=== PATIENT | male | born 1960 | race Caucasian/White ===

== ENCOUNTER 2019-11-28 22:09 | Emergency (ER) | payer BC, SELFPAY ==
[2019-11-28 22:09] VITALS: BP 182/97; PULSE 84; RESP 17; TEMP 37.2; O2SAT 98; BMI 31.2
--- NOTE | 2019-11-28 22:16 | PC.NURSE ---
called [facility] for pt records from last night. requested radiology, lab and discharge reports.
--- NOTE | 2019-11-28 22:31 | CT_ITS ---
PROCEDURE: CT ABDOMEN PELVIS W CON CLINICAL INDICATION: LLQ pain Left lower quadrant pain COMPARISON: No exams were available for comparison TECHNIQUE: IV Contrast: 75ML OPTIRAY 350 Oral Contrast None Axial images obtained with sagittal and coronal reformats. All CT scans at the facility use one or more dose reduction, viz: automated exposure control, ma/kV adjustment per patient size (including targeted exams where dose is matched to indication, i.e. head), or iterative reconstruction technique. FINDINGS: LOWER THORAX: No acute finding ABDOMEN & PELVIS: There is a small hiatal hernia with mild nonspecific thickening of the distal esophagus. The liver, gallbladder, spleen, left adrenal gland, pancreas, has an unremarkable appearance. The right adrenal gland is enlarged at 3.6 cm with an average density of 29 Hounsfield units. There are bilateral renal cyst. There is minimal ectasia of the left renal collecting system secondary to a 2 mm stone at the left ureterovesical junction. There is some minimal stranding of the perinephric and periureteral fat on the left. 2 mm stone in the lower pole of the right kidney. There are bilateral renal hypodensities consistent with renal cysts which may be confirmed with ultrasound. No evidence of appendicitis. Hyperdensity is noted in the appendix which could be related to recent contrast. There is diverticulosis of the descending and sigmoid colon. No evidence of diverticulitis. There is mild thickening of the sigmoid colon which could be due to nondistention or mild colitis. Small nodes are present in the retroperitoneum. No acute bony findings. IMPRESSION: 1. 2 mm left ureterovesical junction stone with mild left-sided obstructive uropathy. Nonobstructive right nephrolithiasis. 2. Indeterminate right adrenal mass. Recommend follow-up CT or MRI with adrenal protocol without and with enhancement 3. Colonic diverticulosis. There is thickening of the sigmoid colon which could be due to nondistention or colitis. No evidence of diverticulitis. Dictated b Paulo Magallanes MD 11/29/2019 08:56 Paulo Magallanes MD in [place] 11/29/2019 08:56
[2019-11-28 22:41] LABS: Basophils % 0.3 % (0.1-2.0); Eosinophils # 0.2 K/mm3 (0.0-0.4); Eosinophils % 2.5 % (0.1-12.0); Hematocrit 45.8 % (42.0-52.0); Hemoglobin 16.2 g/dL (14.1-18.0); Lymphocytes # 2.9 K/mm3 (0.7-4.5); Lymphocytes % 32.1 % (10-50); Mean Corpuscular HGB Conc 35.5 g/dL (31.8-35.4); Mean Corpuscular Hemoglobin 32.6 pg (27.0-31.2); Mean Corpuscular Volume 91.8 fl (80-94); Mean Platelet Volume 9.1 fl (7.4-10.4); Monocytes # 0.5 K/mm3 (0.1-1.0); Monocytes % 5.8 % (1.7-9.3); Neutrophils # 5.3 K/mm3 (1.8-7.8); Neutrophils % 59.3 % (37.0-80.0); Platelet Count 163 K/mm3 (142-424); Red Blood Count 4.98 M/mm3 (4.60-6.20); Red Cell Distribution Width 13.1 % (11.5-17.5)
[2019-11-28 22:43] LABS: Alanine Aminotransferase 16 U/L (12-78); Albumin Level 4.6 g/dl (3.5-5.0); Albumin/Globulin Ratio 1.4 (1.1-1.8); Alkaline Phosphatase 121 U/L (38-126); Anion Gap 13.1 mEq/L (5-15); Aspartate Amino Transferase 32 U/L (17-59); Bilirubin,Total 0.5 mg/dl (0.2-1.3); Blood Urea Nitrogen 21 mg/dl (9-20); Calcium 9.9 mg/dl (8.4-10.2); Carbon Dioxide 30 mmol/L (22.0-30.0); Chloride 101 mmol/L (98-107); Creatinine Clearance Estimated 78 mL/min (50-200); Estimated Glomerular Filt Rate 52 ml/min (>60); GFR (African American) 63 ML/MIN (>60); Globulin 3.3 g/dL (1.3-3.2); Glucose 160 mg/dl (74-100); Potassium 4.1 mmoL/L (3.5-5.1); Sodium 140 mmol/L (136-145); Total Protein,Serum 7.9 g/dl (6.3-8.2)
[2019-11-28 22:44] LABS: Lactic Acid 1.3 mmol/L (0.7-2.1)
[2019-11-28 22:49] LABS: C-Reactive Protein 1.6 mg/L (0-4)
[2019-11-28 23:05] LABS: Erythrocyte Sedimentation Rate 7 mm/hr (0-20)
[2019-11-28 23:30] VITALS: BP 151/94; PULSE 97; RESP 18; O2SAT 97
--- NOTE | 2019-11-28 23:31 | [facility].EDNVD ---
ED Disposition Clinical Impression: Renal colic on left side, Renal insufficiency, mild Disposition: Home, Self-Care Condition on Discharge: Good Instructions: DI for Kidney Stones Additional Instructions: fluids and call dr sotelo saturday am and use meds Prescriptions: Tamsulosin HCl [Flomax 0.4mg capsule] 0.4 mg PO HS #10 cap Prescription Printed Hydrocod/Acet 5/325 mg [Frazer 5/325mg tablet] 1 tab PO Q6HP PRN #7 tab PRN Reason: Moderate To Severe Pain Prescription Printed Referrals: Raghavendra Montaño [Primary Care Provider] - Fuentes Sotelo MD [Staff Physician] - - Critical Care Critical Care Time: No Attestation: On 11/28/19, the high probability of a clinically significant, sudden or life threatening deterioration of the following system(s) required my full and direct attention, intervention and personal management. The time I documented below is in addition to time spent performing reported procedures but includes the following listed in this critical care notation. Medical Decision Making - Medical Records Medical records reviewed: Yes: I reviewed the patient's medical records. - Sebastián Inquiry Pt receiving controlled substance: No Vital Signs: 11/28/19 22:09 Temperature 99.0 F Temperature Source Oral Pulse Rate [Left Radial] 84 Respiratory Rate 17 Blood Pressure [Right Arm] 182/97 H Blood Pressure Mean [Right Arm] 125 Blood Pressure Source [Right Arm] Automatic Cuff Blood Pressure Position [Right Arm] Sitting 02 Sat by Pulse Oximetry 98 Oxygen Delivery Method Room Air - Lab Data Lab results reviewed: Yes: I reviewed the patient's lab results. Lab Results 11/28/19 22:15: WBC 9.0, RBC 4.98, Hgb 16.2, Hct 45.8, MCV 91.8, MCH 32.6 H, MCHC 35.5 H, RDW 13.1, Plt Count 163, MPV 9.1, Neut % (Auto) 59.3, Lymph % (Auto) 32.1, [place] % (Auto) 5.8, Eos % (Auto) 2.5, Baso % (Auto) 0.3, Neut # (Auto) 5.3, Lymph # (Auto) 2.9, [place] # (Auto) 0.5, Eos # (Auto) 0.2, Baso # (Auto) 0.0, ESR 7 11/28/19 22:15: Sodium 140, Potassium 4.1, Chloride 101, Carbon Dioxide 30, Anion Gap 13.1, BUN 21 H, Creatinine 1.40 H, Estimated Creat Clear 78, Estimated GFR 52 L, Est GFR ( Amer) 63, Glucose 160 H, Calcium 9.9, Total Bilirubin 0.5, AST 32, ALT 16, Alkaline Phosphatase 121, C-Reactive Protein 1.6, Total Protein 7.9, Albumin 4.6, Globulin 3.3 H, Albumin/Globulin Ratio 1.4 11/28/19 22:15: Lactate 1.3 Result diagrams: 11/28/19 22:15 11/28/19 22:15 Orders (Tests/Meds): ED MEDICATIONS Generic Name Dose Route Start Last Admin Trade Name Freq PRN Reason Stop Dose Admin Sodium Chloride 1,000 mls @ 999 mls/hr 11/28/19 22:30 11/28/19 22:24 Sod Chlor 0.9% 1000ml Bag IV 11/28/19 23:30 999 mls/hr .[id number] HARRY Administration Discontinued Medications Generic Name Dose Route Start Last Admin Trade Name Freq PRN Reason Stop Dose Admin Hydromorphone HCl 1 mg 11/28/19 22:22 11/28/19 22:23 Dilaudid 2mg/Ml Syringe IV 11/28/19 22:23 1 mg ONCE ONE Administration Ioversol 75 ml 11/28/19 23:00 11/28/19 23:01 Rad-Optiray 350 100ml Vial IV 11/28/19 23:01 75 ml ONCE ONE Administration Protocol Ondansetron HCl 4 mg 11/28/19 22:22 11/28/19 22:23 Zofran 4mg/2ml Vial IV 11/28/19 22:23 4 mg ONCE ONE Administration Promethazine HCl 25 mg 11/28/19 22:36 11/28/19 22:37 Phenergan 25mg/Ml 1ml Vial IV 11/28/19 22:37 25 mg ONCE ONE Administration Sodium Chloride 25 ml 11/28/19 22:36 11/28/19 22:37 Sod Chlor 0.9% 25ml Bag IV 11/28/19 22:37 25 ml ONCE ONE Administration Sodium Chloride 10 ml 11/28/19 23:00 11/28/19 23:01 Rad-Saline Flush 10ml Syringe IV 11/28/19 23:01 10 ml ONCE ONE Administration ORDERS Category Date Time Status CT abdomen pelvis w con Stat Cat Scan 11/28/19 22:31 Taken Urinalysis and Microscopic Stat Lab 11/28/19 23:31 Ordered - CT Data CT Scan: Abdomen, Pelvis Time Received: 23:[address] Reviewed: Yes: I
[2019-11-28 23:33] LABS: Microscopic, Urine URINE MICROSCOPIC (MICROSCOPIC)
[2019-11-28 23:36] LABS: Appearance,Urine CLEAR (Clear); Bilirubin,Urine Negative (Negative); Blood, Urine 3+ (Negative); Color,Urine YELLOW (Yellow); Glucose,Urine (UA) Negative (Negative); Ketones,Urine Negative (Negative); Leukocyte Esterase,Urine Negative (Negative); Nitrate,Urine Negative (Negative); PH,Urine 5.5 (5.0-8.5); Protein,Urine Negative (Negative); Specific Gravity, Urine 1.025 (1.005-1.030)
[2019-11-28 23:43] LABS: Amorphous Sediment,Urine Trace /lpf; Squamous Epithelial Cell,Urine Occasional #/hpf (0-5)
[2019-11-29] VITALS: BP 149/95; PULSE 88; RESP 18; O2SAT 99
[2019-11-29 00:29] VITALS: BP 149/95; PULSE 88; RESP 18; TEMP 37.1; O2SAT 99
== END 2019-11-29 00:31 | disposition home or self-care (01) ==
PROVIDERS: Emergency Provider Emergency Medicine; PCP Family Medicine
DX: N23 Unspecified renal colic (principal); F17.210 Nicotine dependence, cigarettes, uncomplicated
CPT/HCPCS: 74177; 80053; 81001; 83605; 85025; 85651; 86140; 96365; 96375; 99284; J2405; Q9967